=== PATIENT | male | born 2000 | race Caucasian/White ===

== ENCOUNTER 2019-05-26 10:57 | Emergency (ER) | payer BC, SELFPAY ==
[2019-05-26 11:10] VITALS: BP 114/75; PULSE 85; RESP 18; TEMP 36.7; O2SAT 98
--- NOTE | 2019-05-26 11:30 | ED.URI ---
HPI - URI/Sore Throat General Chief Complaint: Upper Respiratory Infection Stated Complaint: sinus infection cough throat Time Seen by Provider: 05/26/19 11:17 Source: patient and RN notes reviewed Mode of arrival: ambulatory Limitations: no limitations History of Present Illness HPI Narrative: Patient presents today with a 2-week history of nasal congestion, rhinorrhea. Over the last 3 to 4 days he has developed a productive cough with headache. He developed scratchy throat yesterday. Denies fever or shortness of breath. Reports exercise-induced asthma that has not been exacerbated since he has been sick. He has tried no medication for symptoms prior to arrival. Reports history of seasonal allergies and sinusitis MD elicited complaint: cough and nasal congestion Related Data Allergies Allergy/AdvReac Type Severity Reaction Status Date / Time No Known Allergies Allergy Verified 05/26/19 11:26 Review of Systems Review of Systems: Narrative: CONSTITUTIONAL: Denies body aches, fever, chills, or sweats. EYES: Denies visual changes, redness, or discharge. ENT: Denies otalgia.+Congestion, rhinorrhea, scratchy throat, postnasal drip CARDIOVASCULAR: Denies chest pain, palpitations, or edema. RESPIRATORY: Denies dyspnea.+Cough GASTROINTESTINAL: Denies abdominal pain, nausea, vomiting, or diarrhea. GENITOURINARY: Denies dysuria or hematuria. SKIN: Denies rash, itching, or wounds. MUSCULOSKELETAL: Denies back pain, joint pain, or myalgia. NEUROLOGIC: Denies numbness, tingling, or weakness.+Headache PSYCH: Denies depression or anxiety. PMFSH Comments At time of signature, I have reviewed and agree with nursing past medical, surgical, social and family history unless otherwise noted. Please see nursing chart for further information. There is no relevant family history pertinent to the presenting complaint Exam Narrative: Exam Narrative: GENERAL: Well-appearing, well-nourished, and in no acute distress. HEAD: Normocephalic, atraumatic. EYES: EOMI. No redness or drainage. Conjunctivae normal. ENT: Mucous membranes pink and moist. Nares congested. No rhinorrhea. TMs normal bilaterally. Throat normal. Uvula midline.Purulent postnasal drainage. NECK: Normal AROM. Supple. No lymphadenopathy. CHEST: No respiratory distress. Clear to auscultation. HEART: Regular rate and rhythm. No murmur appreciated. Normal peripheral pulses. EXTREMITIES: Normal range of motion. No edema. SKIN: Warm, dry, no rash. Capillary refill normal. Normal skin turgor. NEURO: No focal deficits. Alert and oriented x3. Gait steady. PSYCH: Normal affect. No signs of depression or anxiety. Course Vital Signs Vital signs: Vital Signs Temperature 98.1 F 05/26/19 11:10 Pulse Rate 85 05/26/19 11:10 Respiratory Rate 18 05/26/19 11:10 Blood Pressure 114/75 05/26/19 11:10 Pulse Oximetry 98 05/26/19 11:10 Temperature 98.1 F 05/26/19 11:10 Pulse Rate 85 05/26/19 11:10 Respiratory Rate 18 05/26/19 11:10 Blood Pressure 114/75 05/26/19 11:10 Pulse Oximetry 98 05/26/19 11:10 Reviewed MDM - URI/Sore Throat Differential Diagnosis Differential diagnosis: Likely upper respiratory infection, sinusitis, viral infection, bronchitis, pharyngitis and other (Strep throat) Lab Data Attestation: I reviewed the patient's lab results. Labs: Strep Screen Presumptive Negative *(Reference Range: Negative)* Critical Care Time Critical Care Time Critical Care Time: No Discharge Plan Discharge Clinical Impression: Sinusitis Qualifiers: Sinusitis location: unspecified location Chronicity: acute Recurrence: not specified as recurrent Qualified Code(s): J01.90 - Acute sinusitis, unspecified Patient Disposition: Home, Self-Care Condition: Stable Instructions: Antibiotic Form, Sinusitis (ED) Additional Instructions: Please take the amoxicillin as prescribed until gone. You may take [id number]
== END 2019-05-26 11:34 | disposition home or self-care (01) ==
PROVIDERS: Emergency Provider Nurse Practitioner
DX: J01.90 Acute sinusitis, unspecified (principal); J45.990 Exercise induced bronchospasm; K21.9 Gastro-esophageal reflux disease without esophagitis
CPT/HCPCS: 87081; 87880; 99213; G0463